=== PATIENT | female | born 1980 | race African-American/Black ===

== ENCOUNTER 2017-01-26 11:00 | Emergency (ER) | payer BC, OTHER ==
[~2017-01-26] VITALS: Ht 170.2 cm; Wt 81.6 kg
[~2017-01-26 11:00] MED LIST: AMOXICILLIN500 MG ORAL; BACTRIM DS TAB1 EAC1 ORAL; CARISOPRODOL350 MG ORAL; CYCLOBENZAPRINE10 MG ORAL; ERYTHROMYCIN3.5 GM RIGHT EYE; NAPROXEN500 M2 ORAL; NKM; NORCO 5-325 TA1 EACH ORAL; PHENERGAN25 M1 PO; PROTONIX40 MG PO; RANITIDINE HCL150 MG PO; TRAMADOL HCL50 MG ORAL; TYLENOL EXTRA500 MG ORAL; VALIUM5 MG ORAL; ZOFRAN ODT4 MG ORAL
[2017-01-26] MEDS ORDERED: DICLOFENAC SODI75 MG ORAL (11:32)
[2017-01-26] MEDS ORDERED: CYCLOBENZAPRINE10 MG ORAL (11:32)
[2017-01-26 11:36] VITALS: BP 122/71
--- NOTE | 2017-01-26 14:27 | Emergency Room Report ---
History of Present Illness General Chief Complaint: Back Pain-No Injury Source: Patient, Medical Record Present Illness HPI 36-year-old female presents ED complaining of back pain. States she has chronic history of back pain. Denies any recent trauma. Throbbing, /, nonradiating. States she normally takes diclofenac but does not have a prescription at this time. Denies any bowel or bladder incontinence. Denies any leg or motor weakness. No other aggravating or leading factors. Denies any other associated symptoms Allergies: Coded Allergies: ASPIRIN (Verified Allergy, Severe, 01/25/13) Patient History Past Medical History: GERD Past Surgical History: none Pertinent Family History: none Social History: Denies: smoking, alcohol use, drug use Last Menstrual Period: 01/22/17 Now: No Immunizations: UTD Reviewed Nursing Documentation: PMH: Agreed, PSxH: Agreed Nursing Documentation-PMH Past Medical History: No History, Except For Hx Gastrointestinal Problems: Yes - gastritis Review of Systems All Other Systems: negative except mentioned in HPI Physical Exam Vital Signs Date Time Temp Pulse Resp B/P (MAP) Pulse Ox O2 Delivery O2 Flow Rate FiO2 01/26/17 11:06 97.3 68 18 118/70 100 Room Air Sp02 EP Interpretation: reviewed, normal General Appearance: no apparent distress, alert, GCS 15, non-toxic Head: normocephalic Eyes: bilateral eye normal inspection, bilateral eye PERRL ENT: normal ENT inspection Neck: normal inspection Respiratory: normal inspection Cardiovascular #1: normal inspection Gastrointestinal: normal inspection Rectal: deferred Genitourinary: no CVA tenderness, no vertebral tenderness Musculoskeletal: tender - paraspinal lumbar tenderness Neurologic: alert, oriented x3, responsive, motor strength/tone normal, sensory intact, speech normal Psychiatric: normal inspection Skin: normal inspection Lymphatic: normal inspection Medical Decision Making Diagnostic Impression: Primary Impression: Back pain Qualified Codes: M54.5 - Low back pain; G89.29 - Other chronic pain ER Course Hospital Course 36-year-old female presents ED complaining of lower back pain. No evidence of trauma Differential diagnoses include: pyelonephritis, kidney stone, muscle strain, Lspine fracture Clinical course Patient placed on stretcher. After initial history, physical exam reveals a female in no acute distress. There is no vertebral body tenderness. No step- off or deformity. I do not believe patient requires imaging at this time. Pain is chronic. Patient is not want pain medication here. I will provide patient refill of her diclofenac Diagnosis - back pain Stable and discharged to home with prescription for Diclofenac. Followup with PMD. Return to ED if symptoms recur or worsen Last Vital Signs Date Time Temp Pulse Resp B/P (MAP) Pulse Ox O2 Delivery O2 Flow Rate FiO2 01/26/17 11:36 97.3 75 16 122/71 99 Room Air Status: improved Disposition: HOME, SELF-CARE Condition: Stable Scripts Cyclobenzaprine Hcl* (FLEXERIL*) 10 Mg Tablet 10 MG ORAL TID Y for Muscle Spasm, #20 TAB Prov: DEV GASTELUM M.D. 01/26/17 Diclofenac Sod* (VOLTAREN*) 75 Mg Tablet. 75 MG ORAL BID for 30 Days, TAB Prov: DEV GASTELUM M.D. 01/26/17 Referrals: NON PHYSICIAN (PCP) Patient Instructions: Back Pain, Adult DEV GASTELUM M.D. Jan 26, 2017 14:27
== END 2017-01-26 11:40 | disposition home or self-care (01) ==
LOC: EMR 11:30
DX: M54.5 Low back pain (principal); K21.9 Gastro-esophageal reflux disease without esophagitis; Z88.6 Allergy status to analgesic agent
CPT/HCPCS: 99283

== ENCOUNTER 2017-04-12 14:01 | Emergency (ER) | payer SELFPAY ==
[~2017-04-12] VITALS: Ht 170.2 cm; Wt 120.2 kg
[~2017-04-12 14:01] MED LIST changes: +DICLOFENAC SODI75 MG ORAL
[2017-04-12 14:23] VITALS: BP 112/80
[2017-04-12] MEDS ORDERED: AMOXICILLIN500 MG ORAL (14:30)
--- NOTE | 2017-04-12 14:52 | Emergency Room Report ---
History of Present Illness General Chief Complaint: Flu Like Symptoms Source: Patient Present Illness HPI 36-year-old female presents with sore throat for 2 days. States sore throat, +mild dry cough. Pain with swallowing however has still been able to eat/drink. No change in voice. No pain with extension/movement of neck. Denies fever or chills. +sick contacts. Allergies: Coded Allergies: ASPIRIN (Verified Allergy, Severe, 01/25/13) Patient History Past Medical History: see triage record Past Surgical History: none Pertinent Family History: none Now: No Reviewed Nursing Documentation: PMH: Agreed, PSxH: Agreed Nursing Documentation-PMH Past Medical History: No History, Except For Hx Gastrointestinal Problems: Yes - gastritis Review of Systems All Other Systems: negative except mentioned in HPI Physical Exam Vital Signs Date Time Temp Pulse Resp B/P (MAP) Pulse Ox O2 Delivery O2 Flow Rate FiO2 04/12/17 14:07 99.4 115 22 112/80 98 Room Air 99.3 Sp02 EP Interpretation: reviewed, normal General Appearance: normal inspection, well appearing, no apparent distress, alert, GCS 15, non-toxic Head: normocephalic, atraumatic Eyes: bilateral eye normal inspection, bilateral eye PERRL, bilateral eye EOMI ENT: uvula midline, tonsillar swelling, tonsillar exudate Neck: normal inspection, full range of motion, supple Respiratory: normal inspection, lungs clear, normal breath sounds, no respiratory distress, no retraction, no wheezing, speaking full sentences, chest symmetrical Cardiovascular #1: normal inspection, regular rate, rhythm, no edema, normal capillary refill Cardiovascular #2: 2+ radial (R), 2+ radial (L) Gastrointestinal: normal inspection, non tender, soft, non-distended, no guarding Musculoskeletal: normal inspection, back normal, normal range of motion, non- tender Neurologic: normal inspection, alert, oriented x3, responsive, motor strength/ tone normal, sensory intact, normal gait, speech normal Psychiatric: normal inspection, judgement/insight normal, memory normal Skin: normal inspection, normal color, no rash, warm/dry, well hydrated, normal turgor Medical Decision Making Diagnostic Impression: Primary Impression: Acute bacterial pharyngitis ER Course 36-year-old female with sore throat DDX: Viral vs. infectious mononucleosis vs. bacterial pharyngitis vs. allergies Other serious causes such as VICTIMS ADVOCATE CLERK/SPECIALIST / RPA / deep space neck infection history/physical most consistent with bacterial pharyngitis Plan: None emergency room ER course: Patient remains stable in ED. Pt states improvement of pain with motrin. Disposition: Patient will be discharged to home with amoxicillin. Patient will follow up with primary care doctor within 5 days. Strict return precautions discussed with patient such as worsening throat pain/swelling, dysphagia, high fever or chills, shortness of breath, abdominal pain, which may indicate severe illness. Patient verbalized understanding and agreed with plan. Please note that this Emergency Department Report was dictated using [employer] assistant technology software, occasionally this can lead to erroneous entry secondary to interpretation by the dictation equipment. Last Vital Signs Date Time Temp Pulse Resp B/P (MAP) Pulse Ox O2 Delivery O2 Flow Rate FiO2 04/12/17 14:29 99.4 04/12/17 14:23 115 22 Room Air 04/12/17 14:23 112/80 98 Disposition: HOME, SELF-CARE Condition: Improved Scripts Amoxicillin* (AMOXIL*) 500 Mg Capsule 500 MG ORAL BID, #14 CAP 0 Refills Prov: Michelle Mayer M.D. 04/12/17 Referrals: NOT CHOSEN IPA/,REFERRING (PCP) Patient Instructions: Pharyngitis, [id number] Michelle Mayer M.D. Apr 12, 2017 14:52
[2017-04-12 14:57] VITALS: BP 115/80
== END 2017-04-12 14:59 | disposition home or self-care (01) ==
LOC: EMR 14:20
DX: J02.8 Acute pharyngitis due to other specified organisms (principal); B96.89 Other specified bacterial agents as the cause of diseases classified elsewhere; Z86.69 Personal history of other diseases of the nervous system and sense organs
CPT/HCPCS: 99283

== ENCOUNTER 2017-04-28 19:00 | Emergency (ER) | payer SELFPAY ==
[~2017-04-28] VITALS: Ht 170.2 cm; Wt 117.9 kg
--- NOTE | 2017-04-28 20:27 | Emergency Room Report ---
History of Present Illness General Chief Complaint: Sore Throat Source: Patient Present Illness HPI 36 yo female patient presents to ER complaining of sore throat and fever for the past few days. Patient reports subjective fever, no chills, taking Tylenol for pain. Reports neck stiffness. Denies cough. Reports pain with swallowing; reports able to drink fluids and eat food. Reports seen in ER few weeks ago for similar symptoms; diagnosed and treated for pharyngitis. Given Amoxicillin previously. Pt did not followup with primary care provider. Denies chest pain, SOB, vision changes, ABDI, rash. Reports contacts with similar symptoms. Allergies: Coded Allergies: ASPIRIN (Verified Allergy, Severe, 01/25/13) Patient History Past Medical History: see triage record Last Menstrual Period: 04/23/2017 Now: No Reviewed Nursing Documentation: PMH: Agreed, PSxH: Agreed Nursing Documentation-PMH Hx Gastrointestinal Problems: Yes - gastritis Review of Systems All Other Systems: negative except mentioned in HPI Physical Exam Vital Signs Date Time Temp Pulse Resp B/P (MAP) Pulse Ox O2 Delivery O2 Flow Rate FiO2 04/28/17 19:05 98.2 97 18 124/67 98 Room Air 98.2 Sp02 EP Interpretation: reviewed, normal General Appearance: well appearing, no apparent distress, alert, GCS 15, non- toxic Head: normocephalic, atraumatic Eyes: bilateral eye normal inspection, bilateral eye PERRL ENT: hearing grossly normal, normal pharynx, no angioedema, normal voice, TMs + canals normal, uvula midline, moist mucus membranes, pharyngeal erythema, tonsillar exudate, other - uvula midline, no tonsillar swelling Neck: full range of motion Respiratory: lungs clear, normal breath sounds, no rhonchi, no respiratory distress, no accessory muscle use, no wheezing, speaking full sentences, other - no stidor Cardiovascular #1: regular rate, rhythm, no edema Musculoskeletal: back normal, digits/nails normal, gait/station normal, normal range of motion, non-tender Neurologic: alert, oriented x3, responsive, motor strength/tone normal, sensory intact Psychiatric: mood/affect normal Skin: no rash Lymphatic: adenopathy Medical Decision Making PA Attestation Dr. Moran is my supervising Physician whom patient management has been discussed with. Diagnostic Impression: Primary Impression: Tonsillitis ER Course Pt presents to ED c/o sore throat and fever. DDX considered but are not limited to pharyngitis, laryngitis, URI, peritonsillar abscess, tonsillitis, epiglottitis, mono. Low suspicion for peritonsillar abscess, no uvula deviation, no hot potato voice , no stridor. VITAL SIGNS are WNL, patient is afebrile. ORDERS: Decadron Lateral Neck X-ray ER COURSE: X-ray negative, shows no retropharyngeal swelling, no epiglottitis. Discussed results with patient. PE exam consistent with previous visit to ER, tonsillar exudates, uvula midline , erythema, no tonsillar swelling. Patient talking clearlyand turning head with full ROM. Patient seen and evaluated by Dr. Moran, reports agreement with diagnosis and treatment. Will not treat with abx at this time. Previously treated with abx, likely viral etiology. Patient reports feeling bettering prior to discharge. Patient talking without difficulty. DISCHARGE: Salt water gargles Rx provided for Ibuprofen for pain and fever symptoms At this time pt is stable for d/c to home. Patient is resting comfortably, in no acute distress, nontoxic appearing, talking without difficulty. Will provide with patient care instructions and any necessary prescriptions. Patient to take medication as instructed. Care plan and follow-up instructions provided. Patient questions asked and answered. Patient instructed to follow-up with primary care provider in 3 - 5 days. ER precautions given. Patient instructed to return to ER immediately for any new or worsening of symptoms. Other X-Ray Diagnostic Results Other X-Ray Diagnostic Results : X-Ray ordered: soft tissue cervical neck # of Views/Limited Vs Complete: 2 View Indication: Pain EP Interpretation: Yes PA Xray: Interpretation reviewed, by supervising MD, and agrees with findings. Interpretation: no dislocation, no soft tissue swelling, no fractures Impression: No acute disease ROB Scribe Text Fernie Keith PAElissa Last Vital Signs Date Time Temp Pulse Resp B/P (MAP) Pulse Ox O2 Delivery O2 Flow Rate FiO2 04/28/17 19:05 98.2 97 18 124/67 98 Room Air 98.2 Disposition: HOME, SELF-CARE Condition: Stable Scripts Ibuprofen* (MOTRIN*) 600 Mg Tablet 800 MG ORAL THREE TIMES A DAY, #30 TAB 0 Refills Prov: Saul Keith PAlexanderAAlexander 3/21/18 Patient Instructions: Tonsillitis Additional Instructions: Followup with primary care provider in 1-3 days for close followup. Do salt water gargles for symptoms. Rx provided for Ibuprofen for pain and fever symptoms Take medications as directed. Patient questions asked and answered. ER precautions given, patient instructed to return to ER immediately for any new or worsening of symptoms including but not limited to fever, SOB, abdominal pain, voice changes, intractable vomiting. Saul Keith Apr 28, 2017 20:26
[2017-04-28] MEDS ORDERED: Dexamethasone 4mg/ml vial IM ONE (20:30)
[2017-04-28] MEDS ORDERED: TYLENOL EXTRA500 MG ORAL (20:46)
[2017-04-28] MEDS ORDERED: ZITHROMAX250 MG ORAL (20:46)
[2017-04-28] MEDS ORDERED: IBUPROFEN600 MG ORAL (20:56)
[2017-04-28 21:02] VITALS: BP 124/67
--- NOTE | 2017-04-29 09:13 | Diagnostic Imaging Report ---
Indication: Neck pain Technique: 2 views of the neck with soft tissue technique Comparison: none Findings: No prevertebral soft tissue swelling. Normal epiglottis. No hypopharyngeal distention or glottic narrowing. No radiopaque foreign body. Mild degenerative changes of the cervical spine are incidentally noted. Impression: No acute process
== END 2017-04-28 21:02 | disposition home or self-care (01) ==
LOC: EMR 19:25
DX: J03.90 Acute tonsillitis, unspecified (principal)
CPT/HCPCS: 70360; 96372; 99283; J1100

== ENCOUNTER 2017-05-02 15:49 | Emergency (ER) | payer SELFPAY ==
[~2017-05-02] VITALS: Ht 170.2 cm; Wt 117.9 kg
[~2017-05-02 15:49] MED LIST changes: +IBUPROFEN600 MG ORAL; +ZITHROMAX250 MG ORAL
[2017-05-02 16:47] VITALS: BP 120/67
--- NOTE | 2017-05-02 16:47 | Emergency Room Report ---
History of Present Illness General Chief Complaint: Sore Throat Source: Patient, Medical Record (Arabella Rea) Present Illness HPI 36-year-old female presents to the emergency department complaining of 10 out of 10 in severity right-sided sore throat times almost 2 weeks that has been progressive. Patient reports that she was given an injection previous visit 4 days ago that helped reduce her swelling however it quickly returned. Patient reports difficulty swallowing, painful swallowing, fullness in the posterior pharynx. Patient also reports fevers and chills. She denies inability to move her neck or pain under the tongue. She completed a course of amoxicillin earlier this month. She denies recent dental procedures. Denies neck pain. Patient also reports 3 episodes of loose stool. Patient denies profuse watery diarrhea she denies blood in the stool or black tarry stools. She denies abdominal pain or tenderness. Denies CP, Palpitations, LOC, AMS, dizziness, Changes in Vision, Sensation, paresthesias, or a sudden severe headache. (Arabella Rea) Allergies: Coded Allergies: No Known Allergies (Unverified , 05/02/17) Patient History Past Medical History: see triage record Past Surgical History: none Pertinent Family History: none Last Menstrual Period: 04/23/17 Now: No : 1 Para: 1 Reviewed Nursing Documentation: PMH: Agreed; PSxH: Agreed (Arabella Rea) Nursing Documentation-PMH Past Medical History: No History, Except For Hx Gastrointestinal Problems: Yes - gastritis (Arabella Rea) Review of Systems All Other Systems: negative except mentioned in HPI (Arabella Rea) Physical Exam Vital Signs Date Time Temp Pulse Resp B/P (MAP) Pulse Ox O2 Delivery O2 Flow Rate FiO2 05/02/17 16:30 98.5 101 16 120/67 97 Room Air 98.4 Sp02 EP Interpretation: reviewed, normal General Appearance: no apparent distress, alert, GCS 15, non-toxic Head: normocephalic, atraumatic ENT: hearing grossly normal, TMs + canals normal, moist mucus membranes, tonsillar swelling, other - fullness noted to the right tonsillar pillar area. the uvula appears to be mostly midline. pt. has moderate ttp to the right posterior pillar, and no ttp on the left pillar. Voice is muffled. Neck: full range of motion, no meningismus, no bony tend Respiratory: lungs clear, normal breath sounds, no wheezing, speaking full sentences Cardiovascular #1: tachycardia - regular rhythm- tachycardic Gastrointestinal: normal bowel sounds, non tender, soft Musculoskeletal: back normal, gait/station normal, normal range of motion Neurologic: alert, oriented x3, responsive, motor strength/tone normal, sensory intact, speech normal, grossly normal Psychiatric: judgement/insight normal Skin: normal color, no rash, warm/dry, well hydrated Lymphatic: other - bilateral subparotid LAD (Arabella Rea P.A.) Procedures Incision and Drainage Incision and Drainage : Consent: Verbal Site: Right Peritonsillar pillar Blade Size: 18G Spinal needle Wound Location: other - mouth- Right peritonsillar pillar Anesthesia: Lidocaine w/ Epi Volume Anesthetic (ccs): 2 Splint Applied?: No Sling Applied?: No Patient Tolerated: Well Complications: None Progress -Pt. anesthetized locally with 2% viscous lidocaine, then with 2cc 1%Lidocaine with epi -18g spinal needle with 1cm guard using the cap of the needle. Curved ack blade size 3 used to visualize the pillar and to keep the pt. tongue out of the way. -Three attempts were performed starting with the superior pole and working laterally and inferiorly through the middle and lateral pole. all three attempts to aspirate RECREATION DIRECTOR were unsuccessful. (Arabella eRa P.A.) Incision and Drainage : Consent: Verbal - family in attendance Site: right tonsil Blade Size: 11 I & D Procedure: no betadine prep - H202 prep, no sterile drapes applied, no sterile dressing applied, no gauze wick placed Wound Location: other - R tonsil Wound's Depth, Shape: superficial Wound Explored: contaminated - pus expressed Anesthesia: Lidocaine w/ Epi Volume Anesthetic (ccs): 0 - 0.5 Patient Tolerated: Well Complications: None Progress H202 prep. 27 ga needle anesthesia. (Some gagging and nausea - transient) Attempt aspirate with 18 ga - no pus. Incised 11 blade. Straight hemostat expanded incision with drainage of pus. Rinsed with H202. Tolerated well. (Cy Soto M.D.) Medical Decision Making PA Attestation Dr. Soto is my supervising Physician whom patient management has been discussed with. (Arabella Rea) Diagnostic Impression: Primary Impression: Peritonsillar abscess ER Course 36-year-old female presents to the emergency department complaining of 10 out of 10 in severity right-sided sore throat times almost 2 weeks that has been progressive. Patient reports that she was given an injection previous visit 4 days ago that helped reduce her swelling however it quickly returned. Patient reports difficulty swallowing, painful swallowing, fullness in the posterior pharynx. Patient also reports fevers and chills. She denies inability to move her neck or pain under the tongue. She completed a course of amoxicillin earlier this month. She denies recent dental procedures. Denies neck pain. Patient also reports 3 episodes of loose stool. Patient denies profuse watery diarrhea she denies blood in the stool or black tarry stools. She denies abdominal pain or tenderness. Denies CP, Palpitations, LOC, AMS, dizziness, Changes in Vision, Sensation, paresthesias, or a sudden severe headache. Ddx considered but are not limited to: pharyngitis, strep, RECREATION DIRECTOR, ludwigs angina, URI Vital signs: other than tachycardia, are WNL, pt. is afebrile H&PE are most consistent with: Right Sided RECREATION DIRECTOR. ORDERS: -[place] [facility] ED INTERVENTIONS: -RECREATION DIRECTOR Drainage Procedure- PA unsuccessful, Supervising physician attempt was successful. DISCHARGE: At this time pt. is stable for d/c to home. Will provide printed patient care instructions, and any necessary prescriptions. Care plan and follow up instructions have been discussed with the patient prior to discharge. (Arabella Rea) ER Course Please see above note. Post course of Amoxicillin and steroids (04/12, 04/28 - no abx) with worsened pain. I and D peritonsillar abscess performed. Improved pain and also voice post procedure. Tolerated well. Warned may need to have repeat I and D if drainage site closes. Continued antibiotics and oral decadron given. (Cy Soto M.D.) Last Vital Signs Date Time Temp Pulse Resp B/P (MAP) Pulse Ox O2 Delivery O2 Flow Rate FiO2 05/02/17 16:30 98.5 101 16 120/67 97 Room Air 98.4 (Arabella Rea) Last Vital Signs Date Time Temp Pulse Resp B/P (MAP) Pulse Ox O2 Delivery O2 Flow Rate FiO2 05/02/17 19:21 98.2 98 16 115/61 97 Room Air 98.4 Status: improved (Cy Soto M.D.) Disposition: HOME, SELF-CARE Condition: Improved Scripts Hydrocodone Bit/Acetaminophen 5-325* (NORCO 5-325*) 1 Each Tablet 1 TAB ORAL Q8HR PRN for For Pain, #4 TAB 0 Refills Prov: Arabella Rea 05/02/17 Amoxicillin/Potassium Clav 875-125* (AUGMENTIN 875-125 TABLET*) 1 Each Tablet 1 TAB ORAL TWICE A DAY for 10 Days, #20 TAB Prov: Arabella Rea 05/02/17 Departure Forms: Return to Work Return to Work Date: May 06, 2017 Work Restrictions: No Heavy Lifting, No Prolonged Standing Other Restrictions: light duty x 3 days upon return Return to Full Activity: May 10, 2017 Patient Instructions: Peritonsillar Abscess, [id number] Additional Instructions: Take medications as directed. Follow up with a Primary Clinic from the list provided to you in 3-5 days, even if your symptoms have resolved. Return sooner to ED if new symptoms occur, or current symptoms become worse. - Please note that this Emergency Department Report was dictated using [employer] superintendent technology software, occasionally this can lead to erroneous entry secondary to interpretation by the dictation equipment. Arabella Rea May 02, 2017 16:47 Cy Soto M.D. May 03, 2017 03:20
[2017-05-02] MEDS ORDERED: Lidocaine 2% Visc 15ml soln ORAL ONE (17:15)
[2017-05-02] MEDS ORDERED: Norco 5mg/325mg tab ORAL ONE (17:15)
[2017-05-02] MEDS ORDERED: Lidocaine 1% 10mg/ml/Epi 0.005mg/ml 30ml vial INJ ONE (17:15)
[2017-05-02] MEDS ORDERED: AUGMENTIN 875-1 EAC1 ORAL (19:03)
[2017-05-02] MEDS ORDERED: NORCO 5-325 TA1 EACH ORAL (19:03)
[2017-05-02 19:21] VITALS: BP 115/61
== END 2017-05-02 19:22 | disposition home or self-care (01) ==
LOC: EMR 16:53
DX: J36 Peritonsillar abscess (principal)
CPT/HCPCS: 10060; 99284; J8540

== ENCOUNTER 2017-11-16 09:07 | Emergency (ER) | payer BC, OTHER ==
[~2017-11-16] VITALS: Ht 170.2 cm; Wt 97.5 kg
[~2017-11-16 09:07] MED LIST changes: +AUGMENTIN 875-1 EAC1 ORAL
[2017-11-16 09:24] VITALS: BP 119/80
[2017-11-16] MEDS ORDERED: Bicillin LA 1.2MMU/2ML SYR IM ONE (09:30)
[2017-11-16] MEDS ORDERED: Dexamethasone 4mg/ml vial IM ONE (09:30)
--- NOTE | 2017-11-16 09:38 | Emergency Room Report ---
History of Present Illness General Chief Complaint: Sore Throat Source: Patient Present Illness HPI 37-year-old female presents with sore throat, white patches on her tonsils, myalgias, subjective fever for the past 2 days. She reports she's had this multiple times and had penicillin without difficulty for recurrent tonsillitis. She denies any shortness of breath, abdominal pain, vomiting, urinary symptoms. Allergies: Coded Allergies: No Known Allergies (Unverified , 05/02/17) Patient History Past Medical History: see triage record Last Menstrual Period: 11/14/2017 Reviewed Nursing Documentation: PMH: Agreed; PSxH: Agreed Nursing Documentation-PM Past Medical History: No Stated History Hx Gastrointestinal Problems: Yes - gastritis Review of Systems All Other Systems: negative except mentioned in HPI Physical Exam Vital Signs Date Time Temp Pulse Resp B/P (MAP) Pulse Ox O2 Delivery O2 Flow Rate FiO2 11/16/17 09:15 97.7 86 14 123/84 97 Room Air 97.7 Sp02 EP Interpretation: reviewed, normal General Appearance: no apparent distress, alert, non-toxic Head: normocephalic Eyes: bilateral eye normal inspection, bilateral eye PERRL, bilateral eye EOMI ENT: normal ENT inspection, hearing grossly normal, normal voice, moist mucus membranes, tonsillar swelling, pharyngeal erythema, tonsillar exudate Neck: normal inspection, full range of motion, supple, supple/symm/no masses Respiratory: chest non-tender, lungs clear, normal breath sounds, chest symmetrical, palpation of chest normal Cardiovascular #1: normal peripheral pulses, regular rate, rhythm Cardiovascular #2: 2+ radial (R), 2+ radial (L) Gastrointestinal: normal inspection, non tender, soft, no mass, no guarding, no rebound Rectal: deferred Genitourinary: normal inspection, no CVA tenderness Musculoskeletal: back normal, gait/station normal, normal range of motion, non- tender, no calf tenderness Neurologic: alert, responsive, cement tester assistant III-XII nml as tested, motor strength/tone normal, sensory intact, speech normal Psychiatric: judgement/insight normal, memory normal, mood/affect normal, no suicidal/homicidal ideation Skin: normal color, no rash, warm/dry, normal turgor Lymphatic: adenopathy - Bilateral cervical Medical Decision Making Diagnostic Impression: Primary Impression: Strep tonsillitis ER Course Patient without signs and symptoms of abscess, but tonsillitis as per multiple center criteria, will give penicillin, steroids, Tessalon Perles, follow-up with PMD and recommend referral for tonsillectomy times here for the patient. Last Vital Signs Date Time Temp Pulse Resp B/P (MAP) Pulse Ox O2 Delivery O2 Flow Rate FiO2 11/16/17 09:24 97.7 81 14 119/80 97 Room Air 97.7 Disposition: HOME, SELF-CARE Condition: Stable CLARISSA APONTE M.D Nov 16, 2017 09:38
[2017-11-16] MEDS ORDERED: IBUPROFEN600 MG ORAL (09:39)
[2017-11-16] MEDS ORDERED: TESSALON PERLE100 M2 ORAL (09:39)
[2017-11-16 09:53] VITALS: BP 119/80
== END 2017-11-16 09:53 | disposition home or self-care (01) ==
LOC: EMR 09:40
DX: J03.00 Acute streptococcal tonsillitis, unspecified (principal)
CPT/HCPCS: 96372; 99283; J0570; J1100; J0561

== ENCOUNTER 2017-12-05 13:29 | Emergency (ER) | payer BC, OTHER ==
[~2017-12-05] VITALS: Ht 170.2 cm; Wt 113.4 kg
[~2017-12-05 13:29] MED LIST changes: +TESSALON PERLE100 M2 ORAL
[2017-12-05] MEDS ORDERED: PRILOSEC OTC20 MG ORAL ×2 (13:37→15:33)
[2017-12-05 13:41] VITALS: BP 110/35
--- NOTE | 2017-12-05 13:51 | Emergency Room Report ---
History of Present Illness General Chief Complaint: Nausea Source: Patient Present Illness HPI Patient is a 37-year-old female presented after increased chest discomfort as well as nausea and vomiting. Patient prior history of gastritis as well as esophageal reflux. Normally takes Prilosec. The she been having increased nausea and vomiting. Patient states that she additionally been taking diclofenac as well as recent injection of Bicillin due to strep pharyngitis.Patient denies any fever. She denies any urinary symptoms. She states that she had not been having any diarrhea. She denies any hematemesis or productive cough.Patient denies any exertional symptoms. She reports having worsening chest discomfort after eating. She describes pain as a tightness sensation.The patient additionally reports having some epigastric abdominal discomfort.The patient reports currently being on her menses. Allergies: Coded Allergies: No Known Allergies (Unverified , 05/02/17) Patient History Past Medical History: see triage record Now: No Reviewed Nursing Documentation: PMH: Agreed; PSxH: Agreed Nursing Documentation-PMH Past Medical History: No History, Except For Hx Gastrointestinal Problems: Yes - gastritis Review of Systems All Other Systems: negative except mentioned in HPI Physical Exam Vital Signs Date Time Temp Pulse Resp B/P (MAP) Pulse Ox O2 Delivery O2 Flow Rate FiO2 12/05/17 13:31 97.5 77 24 110/35 100 Room Air Sp02 EP Interpretation: reviewed, normal General Appearance: normal inspection, well appearing, no apparent distress, alert, GCS 15, non-toxic Head: atraumatic ENT: normal ENT inspection, hearing grossly normal, normal pharynx, normal voice Neck: normal inspection, full range of motion, supple, no bony tend Respiratory: normal inspection, lungs clear, normal breath sounds, no respiratory distress, no retraction, no wheezing Cardiovascular #1: regular rate, rhythm, no edema Gastrointestinal: normal inspection, normal bowel sounds, non tender, soft, no guarding, no hernia Genitourinary: no CVA tenderness Musculoskeletal: normal inspection, back normal, normal range of motion Neurologic: normal inspection, alert, oriented x3, responsive, assemblies and installations inspector III-XII nml as tested, speech normal Psychiatric: normal inspection, judgement/insight normal, mood/affect normal Skin: normal inspection, normal color, no rash Medical Decision Making Diagnostic Impression: Primary Impression: Gastritis ER Course Patient presented for chest pain. Differential diagnosis included but was not limited to acute coronary syndrome, pulmonary embolism, pneumonia, aortic dissection, shingles, pneumothorax, aortic dissection, esophageal rupture, pericarditis. Because of complexity of patient's case laboratory testing and imaging studies were ordered.Because of complexity of patient's case laboratory testing and imaging studies were ordered. Laboratory studies were unremarkable. The patient was given medications for symptomatic treatment. Patient's exam and history is consistent with a gastritis with some reflux. Patient was given prescription for acid blockers she is advised follow-up with her gas plumbing inspector.The patient is advised to follow up with primary care doctor in 1-2 days. Patient is advised to return if any worsening condition or if any changes in status that are concerning. This report is dictated with [employer] director of global sales software which may occasionally lead to discrepancies related to use of this software. Labs Test 12/05/17 14:05 White Blood Count 7.7 K/UL (4.8-10.8) Red Blood Count 3.85 M/UL (4.20-5.40) Hemoglobin 11.4 G/DL (12.0-16.0) Hematocrit 34.9 % (37.0-47.0) Mean Corpuscular Volume 91 FL (80-99) Mean Corpuscular Hemoglobin 29.6 PG (27.0-31.0) Mean Corpuscular Hemoglobin Concent 32.6 G/DL (32.0-36.0) Red Cell Distribution Width 12.8 % (11.6-14.8) Platelet Count 251 K/UL (150-450) Mean Platelet Volume 7.8 FL (6.5-10.1) Neutrophils (%) (Auto) 63.0 % (45.0-75.0) Lymphocytes (%) (Auto) 27.5 % (20.0-45.0) Monocytes (%) (Auto) 6.0 % (1.0-10.0) Eosinophils (%) (Auto) 2.3 % (0.0-3.0) Basophils (%) (Auto) 1.1 % (0.0-2.0) Urine Color Pale yellow Urine Appearance Turbid Urine pH 7 (4.5-8.0) Urine Specific [place] 1.010 (1.005-1.035) Urine Protein 2+ (NEGATIVE) Urine Glucose (UA) Negative (NEGATIVE) Urine Ketones Negative (NEGATIVE) Urine Blood 5+ (NEGATIVE) Urine Nitrite Negative (NEGATIVE) Urine Bilirubin Negative (NEGATIVE) Urine Urobilinogen Normal MG/DL (0.0-1.0) Urine Leukocyte Esterase 2+ (NEGATIVE) Urine RBC Tntc /HPF (0 - 2) Urine WBC 10-15 /HPF (0 - 2) Urine Squamous Epithelial Cells Few /LPF (NONE/OCC) Urine Bacteria Few /HPF (NONE) Urine HCG, Qualitative Negative (NEGATIVE) Sodium Level 137 MMOL/L (136-145) Potassium Level 3.5 MMOL/L (3.5-5.1) Chloride Level 106 MMOL/L (98-107) Carbon Dioxide Level 25 MMOL/L (21-32) Anion Gap 6 mmol/L (5-15) Blood Urea Nitrogen 11 mg/dL (7-18) Creatinine 0.9 MG/DL (0.55-1.30) Estimat Glomerular Filtration Rate > 60 mL/min (>60) Glucose Level 80 MG/DL (74-106) Calcium Level 9.0 MG/DL (8.5-10.1) Total Bilirubin 0.2 MG/DL (0.2-1.0) Aspartate Amino Transf (AST/SGOT) 17 U/L (15-37) Alanine Aminotransferase (ALT/SGPT) 17 U/L (12-78) Alkaline Phosphatase 64 U/L (46-116) Total Creatine Kinase 97 U/L (26-308) Creatine Kinase MB < 0.5 NG/ML (0.0-3.6) Creatine Kinase MB Relative Index 0.5 Troponin I 0.000 ng/mL (0.000-0.056) Pro-B-Type Natriuretic Peptide 122 pg/mL (0-125) Total Protein 7.4 G/DL (6.4-8.2) Albumin 2.9 G/DL (3.4-5.0) Globulin 4.5 g/dL Albumin/Globulin Ratio 0.6 (1.0-2.7) Lipase 122 U/L (73-393) Urine Opiates Screen Negative (NEGATIVE) Urine Barbiturates Screen Negative (NEGATIVE) Phencyclidine (PCP) Screen Negative (NEGATIVE) Urine Amphetamines Screen Negative (NEGATIVE) Urine Benzodiazepines Screen Negative (NEGATIVE) Urine Cocaine Screen Negative (NEGATIVE) Urine Marijuana (THC) Screen Positive (NEGATIVE) EKG Diagnostic Results Rate: normal - 62 Rhythm: NSR ST Segments: no acute changes Last Vital Signs Date Time Temp Pulse Resp B/P (MAP) Pulse Ox O2 Delivery O2 Flow Rate FiO2 12/05/17 13:31 97.5 77 24 110/35 100 Room Air Status: improved Disposition: HOME, SELF-CARE Condition: Stable Scripts Omeprazole Magnesium (PRILOSEC OTC) 20 Mg Tablet.dr 20 MG ORAL DAILY, #30 TAB Prov: Kash Israel MD 12/05/17 Ondansetron Odt* (ZOFRAN ODT*) 4 Mg Tab.rapdis 4 MG BC EVERY 8 HOURS, #20 TAB 0 Refills Prov: Kash Israel MD 12/05/17 Kash Israel MD Dec 05, 2017 13:51
[2017-12-05] MEDS ORDERED: Lidocaine 2% Visc 15ml soln ORAL ONE (14:00)
[2017-12-05] MEDS ORDERED: Dicyclomine HCl 10mg/5ml oral soln ORAL ONE (14:00)
[2017-12-05] MEDS ORDERED: Mylanta II UD 30ml ORAL ONE (14:00)
[2017-12-05 14:23] LABS: BASOPHILS % (AUTO) 1.1 % (0.0-2.0); EOSINOPHILS % (AUTO) 2.3 % (0.0-3.0); HEMATOCRIT 34.9 % (37.0-47.0); HEMOGLOBIN 11.4 G/DL (12.0-16.0); LYMPHOCYTES % (AUTO) 27.5 % (20.0-45.0); MEAN CORPUSCULAR VOLUME 91 FL (80-99); PLATELET COUNT 251 K/UL (150-450); RED BLOOD COUNT 3.85 M/UL (4.20-5.40); RED CELL DISTRIBUTION WIDTH 12.8 % (11.6-14.8); WHITE BLOOD COUNT 7.7 K/UL (4.8-10.8)
[2017-12-05] MEDS ORDERED: Albuterol/Ipratropium 3ml neb HHN ONE (14:30)
[2017-12-05 14:31] LABS: APPEARANCE,URINE TURBID; BILIRUBIN, URINE NEGATIVE (NEGATIVE); COLOR,URINE PALE YELLOW; GLUCOSE, URINE (UA) NEGATIVE (NEGATIVE); KETONES,URINE NEGATIVE (NEGATIVE); LEUKOCYTE ESTERASE ,URINE 2+ (NEGATIVE); NITRITE,URINE NEGATIVE (NEGATIVE); PH,URINE 7 (4.5-8.0); PROTEIN,URINE 2+ (NEGATIVE); UROBILINOGEN,URINE NORMAL MG/DL (0.0-1.0)
[2017-12-05 14:39] LABS: ANION GAP 6 mmol/L (5-15); BLOOD UREA NITROGEN 11 mg/dL (7-18); CARBON DIOXIDE 25 MMOL/L (21-32); CHLORIDE 106 MMOL/L (98-107); CREATININE 0.9 MG/DL (0.55-1.30); POTASSIUM 3.5 MMOL/L (3.5-5.1); SODIUM 137 MMOL/L (136-145)
[2017-12-05 14:52] LABS: ALANINE AMINOTRANSFERASE 17 U/L (12-78); ALBUMIN 2.9 G/DL (3.4-5.0); ALBUMIN/GLOBULIN RATIO 0.6 (1.0-2.7); ALKALINE PHOSPHATASE 64 U/L (46-116); ASPARTATE AMINO TRANSFERASE 17 U/L (15-37); BILIRUBIN,TOTAL 0.2 MG/DL (0.2-1.0); CKMB < 0.5 NG/ML (0.0-3.6); CREATINE KINASE 97 U/L (26-308)
[2017-12-05] MEDS ORDERED: Metoclopramide 10mg/2ml Inj IVP ONE (15:15)
[2017-12-05] MEDS ORDERED: ONDANSETRON ODT4 MG BC (15:33)
[2017-12-05] MEDS ORDERED: Ampicillin/Sulbactam Sod 3 GM in NS 110 ML IVPB ONE (15:45)
[2017-12-05 16:08] VITALS: BP 115/76
[2017-12-05 16:32] VITALS: BP 122/80
--- NOTE | 2017-12-06 12:40 | Diagnostic Imaging Report ---
Indication: Dyspnea Comparison: 12/09/2011 A single view chest radiograph was obtained. Findings: Cardiomediastinal appearance is within normal limits for age. The lungs are clear. Pulmonary vascularity is appropriate. The diaphragmatic contour is smooth and costophrenic angles are sharp. No pleural effusions are identified. The bones are unremarkable. Impression: No acute findings
== END 2017-12-05 16:32 | disposition home or self-care (01) ==
LOC: EMR 14:10
DX: R07.89 Other chest pain (principal); R11.2 Nausea with vomiting, unspecified; Z87.19 Personal history of other diseases of the digestive system
CPT/HCPCS: 36415; 71045; 80053; 80307; 81003; 81025; 82550; 82553; 83690; 83880; 84484; 85025; 86850; 86900; 86901; 87086; 93005; 94640; 94664; 96365; 96375; 99284; J0295; J2405; J2765; J7620

== ENCOUNTER 2018-07-19 14:49 | Emergency (ER) | payer BC, OTHER ==
[~2018-07-19] VITALS: Ht 170.2 cm; Wt 111.1 kg
[~2018-07-19 14:49] MED LIST changes: +ONDANSETRON ODT4 MG BC; +PRILOSEC OTC20 MG ORAL
[2018-07-19 15:12] VITALS: BP 113/68
--- NOTE | 2018-07-19 15:14 | NUR ---
ED Nurse Note: pt walked in to ER c/p sore throat 09/17 since Wednesday. pt aao x4 and ambulatory. skin clean and intact. pt is not coughing at this time but congestion noted.
--- NOTE | 2018-07-19 15:15 | Emergency Room Report ---
History of Present Illness General Chief Complaint: Sore Throat Source: Patient Present Illness HPI 38-year-old female with history of recurrent strep pharyngitis here complaining of 3 days of 10 out of 10 and sore throats without radiation. Cough and cabral, wheezing, shortness of breath, chest pain. Patient has been taking over-the- counter ibuprofen with minimal relief. Denies fever and chills, nausea vomiting , abdominal pain. Denies all other associated symptoms. Patient is in the process of changing her primary care provider however has been told to be seen by ear nose throat doctor and her previous visits Allergies: Coded Allergies: No Known Allergies (Unverified , 05/02/17) Patient History Past Medical History: see triage record Past Surgical History: unable to obtain Pertinent Family History: none Last Menstrual Period: 07/18/18 Now: No Immunizations: UTD Reviewed Nursing Documentation: PMH: Agreed; PSxH: Agreed Nursing Documentation-PMH Past Medical History: No History, Except For Hx Gastrointestinal Problems: Yes - gastritis Review of Systems All Other Systems: negative except mentioned in HPI Physical Exam Vital Signs Date Time Temp Pulse Resp B/P (MAP) Pulse Ox O2 Delivery O2 Flow Rate FiO2 07/19/18 15:05 98.1 88 19 113/68 (83) 98 Room Air Sp02 EP Interpretation: reviewed, normal General Appearance: normal inspection, well appearing, no apparent distress, alert, GCS 15 Head: normocephalic, atraumatic Eyes: bilateral eye normal inspection, bilateral eye PERRL ENT: TMs + canals normal, uvula midline, tonsillar swelling, tonsillar exudate Neck: normal inspection, full range of motion, supple Respiratory: normal inspection, chest non-tender, lungs clear, normal breath sounds, no rhonchi, no wheezing Cardiovascular #1: normal inspection, normal peripheral pulses, regular rate, rhythm, no gallop, no murmur Gastrointestinal: normal inspection, non tender, soft Genitourinary: no CVA tenderness Musculoskeletal: normal inspection, back normal, digits/nails normal Neurologic: normal inspection, alert, oriented x3, responsive Psychiatric: normal inspection, judgement/insight normal Skin: normal inspection, normal color, no rash, warm/dry Lymphatic: adenopathy - Anterior cervical Medical Decision Making PA Attestation All my diagnosis and treatment plans were reviewed ad discussed with my supervising physician Dr. Bernabe Diagnostic Impression: Primary Impression: Strep pharyngitis ER Course 38-year-old female with history of recurrent strep pharyngitis here complaining of 3 days of 10 out of 10 and sore throats without radiation. Cough and cabral, wheezing, shortness of breath, chest pain. Patient has been taking over-the- counter ibuprofen with minimal relief. Denies fever and chills, nausea vomiting , abdominal pain. Denies all other associated symptoms. Patient is in the process of changing her primary care provider however has been told to be seen by ear nose throat doctor and her previous visits Ddx considered but are not limited to: strep pharyngitis, URI, tonsilitis, peritonsillar absacess, influneza Vital signs: are WNL, pt. is afebrile H&PE are most consistent with: Strep pharyngitis ORDERS: Amoxicillin, ibuprofen ED INTERVENTIONS: None required at this time. DISCHARGE: At this time pt. is stable for d/c to home. Will provide printed patient care instructions, and any necessary prescriptions. Care plan and follow up instructions have been discussed with the patient prior to discharge. With a primary care provider for referral to ENT Last Vital Signs Date Time Temp Pulse Resp B/P (MAP) Pulse Ox O2 Delivery O2 Flow Rate FiO2 07/19/18 15:05 98.1 88 19 113/68 (83) 98 Room Air Disposition: HOME, SELF-CARE Condition: Stable Scripts Ibuprofen* (MOTRIN*) 600 Mg Tablet 600 MG ORAL Q8H PRN for For Pain, #30 TAB 0 Refills Prov: Harjeet Sampson 07/19/18 Amoxicillin* (AMOXIL*) 500 Mg Capsule 500 MG ORAL EVERY 12 HOURS for 10 Days, #20 CAP Prov: Harjeet Sampson 07/19/18 Patient Instructions: Sore Throat, Strep Throat Additional Instructions: Take medication as directed follow-up with a primary care provider for recurrences of strep pharyngitis Harjeet Sampson Jul 19, 2018 15:15
[2018-07-19] MEDS ORDERED: AMOXICILLIN500 MG ORAL (15:16)
[2018-07-19 15:23] VITALS: BP 118/81
[2018-07-19] MEDS ORDERED: IBUPROFEN600 MG ORAL (15:23)
--- NOTE | 2018-07-19 15:24 | NUR ---
ER DISCHARGE NOTE: Patient is cleared to be discharged per ERPA, pt is aox4, on room air, with stable vital signs. pt was given dc and prescription instructions, pt was able to verbalize understanding, pt id band removed. pt is able to ambulate with steady gait. pt took all belongings.
== END 2018-07-19 15:20 | disposition home or self-care (01) ==
LOC: EMR 15:12
DX: J02.0 Streptococcal pharyngitis (principal)
CPT/HCPCS: 99282